=== PATIENT | female | born 1975 | race Asian ===

== ENCOUNTER 2020-10-19 18:04 | Emergency (ER) | payer OTHER ==
[~2020-10-19] VITALS: Ht 154.9 cm; Wt 49.1 kg
[2020-10-19 18:12] VITALS: BP 117/74
[2020-10-19] MEDS ORDERED: MULT-1203 PO (18:13)
== END 2020-10-19 20:02 | disposition home or self-care (01) ==
LOC: EMS 18:04
DX: Z20.822 Contact with and (suspected) exposure to COVID-19 (principal)
CPT/HCPCS: 99283; U0003